=== PATIENT | female | born 1990 | race Hispanic/Latino ===

== ENCOUNTER 2017-12-04 05:52 | Emergency (ER) | payer OTHER ==
[2017-12-04 06:34] VITALS: PULSE 104; RESP 17; O2SAT 100
--- NOTE | 2017-12-04 07:43 | ED PDOC ---
HPI: Female Pain Time Seen by Provider: 12/04/17 07:11 Chief Complaint (Nursing): Female Genitourinary Chief Complaint (Provider): Dysuria History Per: Patient History/Exam Limitations: no limitations Onset/Duration Of Symptoms: Days (3) Additional Complaint(s): Pt. with dysuia, frequent urination, and urgency of urination. Pain across lower back. Symptoms feel like her previous uti. No abd pain, nausea, vomit, diarrhea, weakness, headaches, leg pain. No fever. Bloody urine today. Past Medical History Reviewed: Nursing Documentation, Vital Signs Vital Signs: Last Vital Signs Temp 97.7 F 12/04/17 06:15 Pulse 104 H 12/04/17 06:15 Resp 17 12/04/17 06:15 BP 135/89 12/04/17 06:15 Pulse Ox 100 12/04/17 06:15 - Medical History PMH: Gastritis Other PMH: uti - Surgical History Surgical History: No Surg Hx - Family History Family History: States: Unknown Family Hx - Home Medications Home Medications: Ambulatory Orders Medication Instructions Recorded Ciprofloxacin HCl [Cipro] 500 mg PO BID #14 tablet 09/18/15 Ibuprofen [Motrin] 600 mg PO Q8 PRN #21 tab 09/18/15 Phenazopyridine HCl [Pyridium] 100 mg PO BID PRN #6 tablet 09/18/15 oxyCODONE/Acetaminophen [Percocet 1 ea PO Q6 PRN #8 tab 09/18/15 5/325 mg Tab] Ciprofloxacin HCl [Cipro] 250 mg PO BID #6 tab 12/04/17 Ibuprofen [Motrin] 600 mg PO TID 7 Days tab 12/04/17 Phenazopyridine HCl [Pyridium] 100 mg PO BID PRN 5 Days tab 12/04/17 - Allergies Allergies/Adverse Reactions: Allergies Allergy/AdvReac Type Severity Reaction Status Date / Time No Known Allergies Allergy Verified 09/17/15 23:47 Review of Systems ROS Statement: Except As Marked, All Systems Reviewed And Found Negative Genitourinary Female: Positive for: Dysuria, Frequency, Hematuria Physical Exam - Reviewed Nursing Documentation Reviewed: Yes - Physical Exam Appears: Positive for: Non-toxic, No Acute Distress Head Exam: Positive for: ATRAUMATIC, NORMAL INSPECTION, NORMOCEPHALIC Skin: Positive for: Normal Color, Warm, DRY Neck: Positive for: Normal, Painless ROM Cardiovascular/Chest: Positive for: Regular Rate, Rhythm Respiratory: Positive for: CNT, Normal Breath Sounds Gastrointestinal/Abdominal: Positive for: Soft, Tenderness (suprapubic) Back: Positive for: Normal Inspection. Negative for: L CVA Tenderness, R CVA Tenderness Extremity: Positive for: Normal ROM. Negative for: Tenderness, Pedal Edema Neurologic/Psych: Positive for: Alert, Oriented - Laboratory Results Urine dip results: Positive for: Leukocyte Esterase - ECG O2 Sat by Pulse Oximetry: 100 Pulse Ox Interpretation: Normal - Progress ED Course And Treament: 749: Stable. AAOx3. Likely uti per urine dip and symptoms. Will rx cipro as it had high sensitivity per urine cx 2015. Disposition - Clinical Impression Clinical Impression: Urinary tract infection - Patient ED Disposition Is Patient to be Admitted: No Counseled Patient/Family Regarding: Studies Performed, Diagnosis, Need For Followup, Rx Given - Disposition Referrals: [facility] [Outside] - 12/05/17 Disposition: Routine/Home Disposition Time: 07:14 Condition: FAIR Additional Instructions: Return if not better in 3 days. Prescriptions: Ciprofloxacin HCl [Cipro] 250 mg PO BID #6 tab Ibuprofen [Motrin] 600 mg PO TID 7 Days tab Phenazopyridine HCl [Pyridium] 100 mg PO BID PRN 5 Days tab PRN Reason: Bladder Spasm Instructions: Urinary Tract Infection, Adult (DC) Forms: [facility] [facility] ([place]iss), [facility] ED School/Work Excuse
[2017-12-04 08:42] VITALS: BP 129/79; TEMP 98.3
== END 2017-12-04 08:52 | disposition home or self-care (01) ==
LOC: H.ER 05:52
DX: N39.0 Urinary tract infection, site not specified (principal)